=== PATIENT | male | born 1975 | race Hispanic/Latino ===

== ENCOUNTER 2017-08-16 06:53 | Observation (INO) | payer OTHER ==
[2017-08-16 06:57] VITALS: BMI 35.6
[2017-08-16 07:50] LABS: BASO # 0.01 K/mm3 (0.0-2.0); BASO % 0.1 % (0.0-3.0); EOS # 0.1 (0.0-0.7); EOS % 1.3 % (1.5-5.0); GRAN # 6.02 (1.4-6.5); HEMOGLOBIN 14.2 g/dL (14.0-18.0); LYMPH # 2.1 (1.2-3.4); MEAN CELL VOLUME 83.7 fl (80.0-105.0); MEAN CORPUSCULAR HEMOGLOBIN 28.3 pg (25.0-35.0); MEAN CORPUSCULAR HGB CONC 33.8 g/dl (31.0-37.0); MEAN PLATELET VOLUME 9.4 fl (7.0-11.0); MONO # 0.4 (0.1-0.6); MONO % 4.6 % (1.0-6.0); RBC 5.02 10^6/uL (3.5-6.1); RED CELL DISTRIBUTION WIDTH 13.4 % (11.5-14.5); WHITE BLOOD COUNT 8.6 10^3/ul (4.5-11.0)
--- NOTE | 2017-08-16 07:58 | ED PDOC ---
Arrival/HPI - General Historian: Patient - History of Present Illness Symptom Onset: Sudden Symptom Course: Unchanged Activities at Onset: Rest Context: Exertion <Jamaal Taylor - Last Filed: 08/16/17 10:13> - History of Present Illness Time/Duration: 24 hours Quality: Tightness, Cramping Severity Level: Severe <Can Melvin - Last Filed: 08/16/17 13:19> - General Chief Complaint: High Blood Pressure Time Seen by Provider: 08/16/17 07:11 - History of Present Illness Narrative History of Present Illness (Text): 08/16/17 07:54 Patient is a 41M with a PMH of HTN and GERD comes to the ED complaining of SOB and chest pain radiating down the left arm since last night. He states that he felt chest tightness and difficultly catching his breath last night, went to sleep, continue to feel this way, went to work and when his symptoms did not resolve he came to the ED. He denies any diaphoresis, syncope, fever, chills, nausea, vomiting diarrhea. This has never happened before. States he checked his blood pressure at home and systolic was ~170. Of note the patient has a FH of father with [place] at 50 and grandmother with [place] in 40s. States he saw he Dr. Elias 3 years ago for nuclear medicine scan that was normal at that time. (Jamaal Taylor) Past Medical History - Cardiac Hx Hypertension: Yes - Pulmonary Hx Respiratory Disorders: No - Neurological Hx Neurological Disorder: No - HEENT Hx HEENT Disorder: No - Renal Hx Renal Disorder: No - Endocrine/Metabolic Hx Endocrine Disorders: No - Hematological/Oncological Hx Blood Disorders: No - Integumentary Hx Dermatological Disorder: No - Musculoskeletal/Rheumatological Hx Musculoskeletal Disorders: No - Gastrointestinal Hx Gastroesophageal Reflux: Yes - Genitourinary/Gynecological Hx Genitourinary Disorders: No - Psychiatric Hx Psychophysiologic Disorder: No Hx Substance Use: No - Anesthesia Hx Anesthesia: No <Jamaal Taylor - Last Filed: 08/16/17 10:13> - Provider Review Nursing Documentation Reviewed: Yes - Travel History Have you recently traveled outside [place] w/in the past 3 mons?: No - Past History Past History: No Previous - Infectious Disease Hx of Infectious Diseases: None <Can Melvin - Last Filed: 08/16/17 13:19> Family/Social History Family/Social History: Unknown Family HX Smoking Status: Never Smoked Hx Alcohol Use: No Hx Substance Use: No <Jamaal Taylor - Last Filed: 08/16/17 10:13> - Physician Review Nursing Documentation Reviewed: Yes Hx Substance Use Treatment: No <Can Melvin - Last Filed: 08/16/17 13:19> Allergies/Home Meds <Jamaal Taylor - Last Filed: 08/16/17 10:13> <Can Melvin - Last Filed: 08/16/17 13:19> Allergies/Adverse Reactions: Allergies No Known Allergies Allergy (Verified 08/16/17 06:57) Home Medications: Home Meds Medication Instructions Recorded Confirmed Esomeprazole Magnesium [Nexium] 40 mg PO DAILY 03/15/13 08/16/17 Lisinopril [Zestril] 10 mg PO DAILY 08/16/17 08/16/17 Review of Systems - Review of Systems Constitutional: Normal Eyes: Normal ENT: Normal Respiratory: SOB Cardiovascular: Chest Pain. absent: Syncope Gastrointestinal: absent: Diarrhea, Nausea, Vomiting Genitourinary Male: Normal Musculoskeletal: Normal Skin: Normal Neurological: Normal Endocrine: Normal Hemo/Lymphatic: Normal Psychiatric: Normal <Jamaal Taylor - Last Filed: 08/16/17 10:13> Physical Exam Temperature: Afebrile Blood Pressure: Hypertensive Pulse: Tachycardic Respiratory Rate: Normal Appearance: Positive for: Well-Appearing, Non-Toxic, Comfortable Pain Distress: None Mental Status: Positive for: Alert and Oriented X 3 - Systems Exam Head: Present: Atraumatic, Normocephalic Pupils: Present: PERRL Extroacular Muscles: Present: EOMI Conjunctiva: Present: Normal Mouth: Present: Moist Mucous Membranes Respiratory/Chest: Present: Clear to Auscultation, Good Air Exchange. No: Respiratory Distress, Accessory Muscle Use Cardiovascular: Present: Normal S1, S2, Tachycardic. No: Murmurs Abdomen: Present: Normal Bowel Sounds. No: Tenderness, Distention, Peritoneal Signs Upper Extremity: Present: Normal Inspection. No: Cyanosis, Edema Lower Extremity: Present: Normal Inspection. No: Edema Neurological: Present: GCS=15, CN II-XII Intact Skin: Present: Warm, Dry, Normal Color. No: Rashes Psychiatric: Present: Alert, Oriented x 3, Normal Insight, Normal Concentration <ClaudiaJamaal - Last Filed: 08/16/17 10:13> Vital Signs Temp Pulse Resp BP Pulse Ox 08/16/17 12:40 92 H 18 149/88 98 08/16/17 11:28 99.2 F 92 H 16 142/86 98 08/16/17 10:15 92 H 18 144/92 H 96 08/16/17 09:11 108 H 140/76 08/16/17 08:16 102 H 18 138/83 96 08/16/17 07:10 98.4 F 08/16/17 07:05 97.9 F 107 H 14 166/110 H 97 Medical Decision Making <ClaudiaJamaal - Last Filed: 08/16/17 10:13> Re-evaluation Time: 11:00 Reassessment Condition: Improved - Critical Care Critical Care Minutes: 30 minutes Critical Care Time: Excluding Proc Time - Lab Interpretations I have reviewed the lab results: Yes Interpretation: All labs normal - RAD Interpretation [employer] Science Teacher: Radiologist - EKG Interpretation Interpreted by ED Physician: Yes Type: 12 lead EKG Comparison: No previous EKG avail. <Can Melvin - Last Filed: 08/16/17 13:19> ED Course and Treatment: 08/16/17 08:01 41M with chest pain and SOB - cxr, ekg, cta - cbc, cmp, mag, cardiac iso, bnp - Nitro SL and ASA 325 - initial impression on CXR does not show any infiltrate or effusion, no widening of the mediastinum 08/16/17 09:55 - CXR negative - pain improving - labs unremarkable - EKG no st changes or arrythmogenic intervals - Troponin negative - BnP negative - pending CTA official read 08/16/17 10:14 - CTA negative - call put out to admitting doctor (Jamaal Taylor) 08/16/17 08:23 Patient seen with the resident. I performed a physical exam of the patient and discussed their management with resident. I have reviewed the resident note and agree with the assessment and plan of care. Vital signs reviewed: elevated BP/elevated HR alert/awake, GCS = 15, oriented x 3, resting in bed, uncomfortable, cooperative , interactive NC/AT PERRLA, EOMI, sclera anicteric, no nystagmus, no photophobia NECK: intact ROM, no midline tenderness, no nuchal rigidity, no meningeal signs CTA b/l, no w/r/r; no reproducible chest tenderness noted +S1, +S2, + mild tachycardia, no m/r/r +BS, soft/nd/nt, well nourished patient ext: intact ROM, strength 5/5 grossly intact in all limbs, neurovasc intact b/l SKIN: cap refill < 1 sec, no ulcerations, no petechiae, no rashes NEURO: CNII-XII WNL, no facial asymmetries, no slurr speech, oriented x 3 NIH stroke scale ~ 0 Impression: chest pain and shortness of breath I have considered all the differential diagnosis regarding the patient's chief medical complaints/clinical findings, including but are not limited to: chest pain and shortness of breath; r/o ACS A/P: chest pain and shortness of breath -- Chest X-ray -- EKG -- CTA -- Pain Control -- Supportive Care -- Observe PROCEDURE: CT Chest with contrast (Pulmonary Angiogram) Dictator : Osmani Ghosh MD Report Date : 08/16/2017 10:04:04 IMPRESSION: Unremarkable CT pulmonary angiogram. No pulmonary embolus. pt is currently chest pain free pt states he felt improved pt's vital signs are improving as well 08/16/17 10:18: Case discussed with Dr. Elias in detail. Will come evaluate patient. 08/16/17 10:21 Case discussed in detail with Dr. Baird; made aware, agrees with admission 08/16/17 1100 - pt is made aware of his medical results agrees with admission/observation (Can Melvin) - Critical Care Narrative Critical Care (Text): 08/16/17 13:12 critical care time: 30min, excluding procedure time, excluding time teaching residents/students/mid-level providers; including initial eval/diagnosis, diagnostic interpretation, re-eval, consultations, final disposition (Can Melvin) - Lab Interpretations Lab Results: 08/16/17 07:30 08/16/17 07:30 Lab Results 08/16/17 09:20: Urine Opiates Screen Negative, Urine Methadone Screen Negative, Ur Barbiturates Screen Negative, Ur Phencyclidine Scrn Negative, Ur Amphetamines Screen Negative, U Benzodiazepines Scrn Negative, U Oth Cocaine Metabols Negative, U Cannabinoids Screen Negative 08/16/17 07:30: Sodium 141, Potassium 4.3, Chloride 101, Carbon Dioxide 29, Anion Gap 14, BUN 13, Creatinine 0.7 L, Est GFR ( Amer) > 60, Est GFR ( Non-Af Amer) > 60, Random Glucose 116 H, Calcium 9.9, Magnesium 1.7, Total Bilirubin 0.2, AST 24, ALT 52, Alkaline Phosphatase 51, Lactate Dehydrogenase 494, Total Creatine Kinase 185, Troponin I < 0.01, NT-Pro-B Natriuret Pep < 11.1 , Total Protein 7.3, Albumin 4.3, Globulin 2.9, Albumin/Globulin Ratio 1.5 08/16/17 07:30: WBC 8.6, RBC 5.02, Hgb 14.2, Hct 42.0, MCV 83.7, MCH 28.3, MCHC 33.8, RDW 13.4, Plt Count 214, MPV 9.4, Gran % 70.0 H, Lymph % (Auto) 24.0, [place] % (Auto) 4.6, Eos % (Auto) 1.3 L, Baso % (Auto) 0.1, Gran # 6.02, Lymph # ( Auto) 2.1, [place] # (Auto) 0.4, Eos # (Auto) 0.1, Baso # (Auto) 0.01 - RAD Interpretation Narrative RAD Interpretations (Text): 08/16/17 13:13 PROCEDURE: CT Chest with contrast (Pulmonary Angiogram) HISTORY: chest pain, acute SOB, unilateral LE edema, tachy COMPARISON: None available. TECHNIQUE: Axial computed tomography images were obtained of the chest in the pulmonary arterial phase of enhancement. Coronal and sagittal reformatted images were created and reviewed. Intravenous contrast dose: 100 cc of Omni 350 Radiation dose: Total exam DLP = 435 mGy-cm. This CT exam was performed using one or more of the following dose reduction techniques: Automated exposure control, adjustment of the mA and/or kV according to patient size, and/or use of iterative reconstruction technique. FINDINGS: PULMONARY ARTERIES: Unremarkable. No pulmonary embolism. AORTA: No acute findings. No thoracic aortic aneurysm. LUNGS: Unremarkable. No nodule, mass or pulmonary consolidation. PLEURAL SPACES: Unremarkable. No effusion or pneuomothorax. HEART: Unremarkable. No cardiomegaly. No significant pericardial effusion. LYMPH NODES: No lymphadenopathy. BONES, CHEST WALL: Unremarkable. No fracture or destructive lesion OTHER FINDINGS: Unremarkable. IMPRESSION: Unremarkable CT pulmonary angiogram. No pulmonary embolus. 08/16/17 13:13 Portable chest History. Chest pain and shortness of breath Comments. The heart and mediastinum are normal in size per the lungs are clear. There is no evidence of CHF or pneumonia. Impression: No active disease (Can Melvin) Radiology Orders: 08/16/17 07:12 CHEST PORTABLE [RAD] Stat 08/16/17 07:50 ANGIO CHEST PE PROTOCOL [CT] Stat - EKG Interpretation EKG Interpretation (Text): 08/16/17 13:13 Sinus tach at 105 bpm, LAD, no ectopy, peaked T in leads V3-4, no st changes, ABNL EKG; no old ekg available (Can Melvin) - Medication Orders Current Medication Orders: Discontinued Medications Aspirin (Aspirin) 325 mg PO STAT STA Stop: 08/16/17 07:51 Last Admin: 08/16/17 08:05 Dose: 325 mg Metoprolol Tartrate (Lopressor) 5 mg IVP STAT STA Stop: 08/16/17 08:43 Last Admin: 08/16/17 09:11 Dose: 5 mg IVP Administration Document 08/16/17 09:11 Marcus (Rec: 08/16/17 09:11 [facility] [id number]) Charges for Administration # of IVP Administrations 1 MAR Pulse and Blood Pressure Document 08/16/17 09:11 HIRAM (Rec: 08/16/17 09:11 [facility] [id number]) Pulse Pulse Rate (60-90) 108 Blood Pressure Blood Pressure (100/60-150/90) 140/76 Nitroglycerin (Nitrostat Sl Tab) 0.4 mg SL STAT STA Stop: 08/16/17 07:40 Last Admin: 08/16/17 08:04 Dose: 0.4 mg - PA / [employer] / Resident Statement / has reviewed & agrees with the documentation as recorded. / has examined the patient and agrees with the treatment plan. <Jamaal Taylor - Last Filed: 08/16/17 10:13> - Scribe Statement The provider has reviewed the documentation as recorded by the Scribe <Can Melvin - Last Filed: 08/16/17 13:19> - Scribe Statement Valerie Odell Provider Scribe Attestation: All medical record entries made by the Scribe were at my direction and personally dictated by me. I have reviewed the chart and agree that the record accurately reflects my personal performance of the history, physical exam, medical decision making, and the department course for this patient. I have also personally directed, reviewed, and agree with the discharge instructions and disposition. (Can Melvin) Disposition/Present on Arrival - Present on Arrival Any Indicators Present on Arrival: Yes History of DVT/PE: No History of Uncontrolled Diabetes: No Urinary Catheter: No History of Decub. Ulcer: No History Surgical Site Infection Following: None - Disposition Have Diagnosis and Disposition been Completed?: Yes Disposition Time: 10:15 Patient Plan: Observation <Jamaal Taylor - Last Filed: 08/16/17 10:13> - Disposition Patient Plan: Admission <Can Melvin - Last Filed: 08/16/17 13:19> - Disposition Diagnosis: Chest pain, HTN (hypertension) Disposition: HOSPITALIZED Patient Problems: Current Active Problems Problem Status Onset Chest pain Acute Condition: STABLE
[2017-08-16 08:00] LABS: ALB/GLOB RATIO 1.5 (1.1-1.8); ALBUMIN 4.3 g/dL (3.0-4.8); ALT/SGPT 52 U/L (7-56); AST/SGOT 24 U/L (17-59); BLOOD UREA NITROGEN 13 mg/dL (7-21); CALCIUM 9.9 mg/dL (8.4-10.5); GFR AFRICAN-AMERICAN > 60; GFR NON-AFRICAN AMERICAN > 60
[2017-08-16 08:12] LABS: TROPONIN I < 0.01 ng/mL
[2017-08-16] MEDS ORDERED: Iohexol 350 MG/100 ML VIAL ONE (08:30)
[2017-08-16 08:31] LABS: B-TYPE NATRIURETIC PEPTIDE < 11.1 pg/mL (0-450)
[2017-08-16] MEDS ORDERED: Metoprolol 1 mg/ml Inj IVP STA (08:42)
--- NOTE | 2017-08-16 09:38 | RAD ---
Portable chest History. Chest pain and shortness of breath Comments. The heart and mediastinum are normal in size per the lungs are clear. There is no evidence of CHF or pneumonia. Impression: No active disease
[2017-08-16 09:49] LABS: BARBITURATES, UR NEGATIVE (NEGATIVE); BENZODIAZEPINES, UR NEGATIVE (NEGATIVE); OPIATES, UR NEGATIVE (NEGATIVE); PHENCYCLIDINE, UR NEGATIVE (NEGATIVE)
--- NOTE | 2017-08-16 10:05 | CT ---
PROCEDURE: CT Chest with contrast (Pulmonary Angiogram) HISTORY: chest pain, acute SOB, unilateral LE edema, tachy COMPARISON: None available. TECHNIQUE: Axial computed tomography images were obtained of the chest in the pulmonary arterial phase of enhancement. Coronal and sagittal reformatted images were created and reviewed. Intravenous contrast dose: 100 cc of Omni 350 Radiation dose: Total exam DLP = 435 mGy-cm. This CT exam was performed using one or more of the following dose reduction techniques: Automated exposure control, adjustment of the mA and/or kV according to patient size, and/or use of iterative reconstruction technique. FINDINGS: PULMONARY ARTERIES: Unremarkable. No pulmonary embolism. AORTA: No acute findings. No thoracic aortic aneurysm. LUNGS: Unremarkable. No nodule, mass or pulmonary consolidation. PLEURAL SPACES: Unremarkable. No effusion or pneuomothorax. HEART: Unremarkable. No cardiomegaly. No significant pericardial effusion. LYMPH NODES: No lymphadenopathy. BONES, CHEST WALL: Unremarkable. No fracture or destructive lesion OTHER FINDINGS: Unremarkable. IMPRESSION: Unremarkable CT pulmonary angiogram. No pulmonary embolus.
[2017-08-16] MEDS ORDERED: Non Formulary Medication (Esomeprazole Magnesium [Nexium] 40 MG) PO SCH (15:15)
[2017-08-16] MEDS ORDERED: Pantoprazole 40 mg EC Tab PO ONE (15:15)
--- NOTE | 2017-08-16 17:05 | CP.PCM.PN ---
Subjective - Date & Time of Evaluation Date of Evaluation: 08/16/17 Time of Evaluation: 17:01 - Subjective Subjective: House Doctor evaluation for chest pain Patient is a 41yo male with PMH of HTN admitted today for chest pain. He reports it is located in the L upper area in his chest and radiates down to his shoulder. He had this pain on admission which was relieved by sublingual nitro. Patient reports this pain is back and has numbness/tingling down the arm. He denies nausea/vomiting/diarrhea, fever/chills, shortness of breath, vision changes or headache. Vitals were reviewed and patient was noted to have SBP in 130s. Otherwise vitals were stable. Repeat EKG was done which showed NSR. First troponin was negative. Troponin was repeated and was <0.01 x 2. Will repeat another troponin and give one dose of sublingual nitro. PMD, Dr. Baird was notified. Susanne Medrano PGY2 Objective - Vital Signs/Intake and Output Vital Signs (last 24 hours): Temp Pulse Resp BP Pulse Ox 98.1 F 64 20 143/99 H 98 08/16/17 16:15 08/16/17 16:15 08/16/17 16:15 08/16/17 16:15 08/16/17 12:40 - Medications Medications: Current Medications Lisinopril (Zestril) 10 mg PO DAILY IVORY Pantoprazole Sodium (Protonix Ec Tab) 40 mg PO ACB IVORY - Constitutional Appears: No Acute Distress - Head Exam Head Exam: ATRAUMATIC, NORMAL INSPECTION, NORMOCEPHALIC - Eye Exam Eye Exam: Normal appearance, PERRL Pupil Exam: NORMAL ACCOMODATION, PERRL - ENT Exam ENT Exam: Mucous Membranes Moist - Neck Exam Neck Exam: Normal Inspection - Respiratory Exam Respiratory Exam: Clear to Ausculation Bilateral, NORMAL BREATHING PATTERN. absent: Rales, Rhonchi, Wheezes, Respiratory Distress - Cardiovascular Exam Cardiovascular Exam: REGULAR RHYTHM, +S1, +S2. absent: Gallop, Murmur - GI/Abdominal Exam GI & Abdominal Exam: Soft, Normal Bowel Sounds. absent: Tenderness, Diminished Bowel Sounds, Mass, Rebound - Extremities Exam Extremities Exam: absent: Calf Tenderness, Pedal Edema, Tenderness - Neurological Exam Neurological Exam: Alert, Awake, CN II-XII Intact, Oriented x3 - Psychiatric Exam Psychiatric exam: Normal Affect, Normal Mood - Skin Skin Exam: Intact, Warm
--- NOTE | 2017-08-16 19:15 | CON ---
DATE: 08/16/2017 CARDIOLOGY CONSULTATION HISTORY OF PRESENT ILLNESS: The patient is a 41-year-old male who presents with chest pain. His symptoms are described predominantly left shoulder. PAST MEDICAL HISTORY: Includes a stress test that was done 3 years ago, which was unremarkable. He suffers from hypertension. He is mildly overweight. His life is sedentary. No diabetes mellitus. SOCIAL HISTORY The patient stopped smoking. REVIEW OF SYSTEMS: A 14-point review of systems is reviewed in detail. Other than his atypical chest discomfort, there are no other cardiac symptoms. PHYSICAL EXAMINATION: VITAL SIGNS: Blood pressure is 142/86, heart rate in the 90s. NECK: Negative JVD. LUNGS: Without rales. HEART: S1, S2. EXTREMITIES: Without edema. LABORATORY DATA AND IMAGING: EKG is unremarkable. Hemoglobin is 14.2. Chemistries: BUN and creatinine unremarkable. The first troponin is negative. The glucose is 116. IMPRESSION: 1. Chest pain. 2. No evidence for acute coronary syndrome. 3. Hypertension. 4. Sedentary lifestyle. 5. Overweight. 6. Borderline diabetes mellitus. Given these findings, the patient is being admitted to telemetry. We will obtain serial troponins. If negative, the patient will need to change his lifestyle as well as undergo stress test, which can be done electively. Kris Elias MD : 08/16/2017 12:25:09
--- NOTE | 2017-08-16 19:17 | CARD ---
APPROVED REPORT EKG Measurement Heart [id number] MO 150P8 [id number] <Conclusion> Normal sinus rhythm Normal ECG
--- NOTE | 2017-08-16 19:32 | CARD ---
APPROVED REPORT EKG Measurement Heart [id number] 144P3 [id number] <Conclusion> Sinus tachycardia Otherwise normal ECG
[2017-08-17 06:51] LABS: HEMOGLOBIN 14.1 g/dL (14.0-18.0); MEAN CELL VOLUME 83.4 fl (80.0-105.0); MEAN CORPUSCULAR HEMOGLOBIN 27.6 pg (25.0-35.0); MEAN CORPUSCULAR HGB CONC 33.1 g/dl (31.0-37.0); MEAN PLATELET VOLUME 9.2 fl (7.0-11.0); RBC 5.11 10^6/uL (3.5-6.1); RED CELL DISTRIBUTION WIDTH 13.8 % (11.5-14.5)
[2017-08-17 07:13] LABS: BLOOD UREA NITROGEN 13 mg/dL (7-21); CALCIUM 9.6 mg/dL (8.4-10.5); GFR AFRICAN-AMERICAN > 60; GFR NON-AFRICAN AMERICAN > 60; HDL CHOLESTEROL 36 mg/dL (29-60)
[2017-08-17 07:24] LABS: LDL CHOLESTEROL 107 mg/dL (0-129)
[2017-08-17 07:26] LABS: TROPONIN I < 0.01 ng/mL
[2017-08-17] MEDS ORDERED: Pantoprazole 40 mg EC Tab PO SCH (07:30)
[2017-08-17 09:03] VITALS: RESP 17; TEMP 98.3; O2SAT 97
--- NOTE | 2017-08-17 09:47 | HP ---
DATE OF EXAM: The patient is a 41-year-old male. CHIEF COMPLAINT: Chest pain. HISTORY OF PRESENT ILLNESS: Mr. Florencio Reed is a 41-year-old male with past medical history of hypertension and GERD, comes to the emergency room complaining of shortness of breath and chest pain, radiating down to the left arm since last night. He states that he felt chest tightness and difficulty catching his breath last night, went to sleep, continued to feel like this way, went to work and when his symptoms did not resolve, he came to the emergency room. He denies any diaphoresis, syncope, fever, chills, nausea, vomiting, diarrhea. This has never happened before, states that he checked his blood pressure at home, systolic was 170. Patient has family history of coronary artery disease, father has [place] at the age of 50 and grandmother has [place] at the age of 40s. States that he was seen by Dr. Kris Elias three years ago for nuclear medicine scan that was normal at that time. PAST MEDICAL HISTORY: Hypertension, obesity, gastroesophageal reflux disease. FAMILY HISTORY: Father and grandmother has coronary artery disease. SOCIAL HISTORY: Smoking, he never smoked. No drugs. No ethanol. ALLERGIES: NO KNOWN DRUG ALLERGY. HOME MEDICATIONS: Nexium, Zestril. REVIEW OF SYSTEMS: Patient was seen and examined on the bedside in his room, looking comfortable. At that moment, no shortness of breath, no syncope. No diarrhea, nausea or vomiting. No fever. No chills. No dysuria. Complaining about chest pain. PHYSICAL EXAMINATION: VITAL SIGNS: Temperature 99.2, pulse 92, respiratory rate 16, blood pressure 120/80 , pulse oximetry 98%. HEENT: Head normocephalic, atraumatic. Eyes: PERRLA. Extraocular movements intact. Conjunctivae clear. Nose patent. Mucous membranes moist. NECK: Supple. No carotid bruits. No JVD or thyromegaly. CHEST: Bilaterally symmetrical. HEART: S1, S2 positive. LUNGS: Clear to auscultation. ABDOMEN: Soft. Bowel sounds present. No organomegaly. EXTREMITIES: No edema. No cyanosis. NEUROLOGICAL: Patient is awake, alert. Moving all 4 extremities. No focal deficits. LABORATORY DATA: White blood cell is 8.6, hemoglobin 14.2, hematocrit 42, platelets 214. Sodium 141, potassium 4.3, BUN 13, creatinine 0.7, glucose 116. ASSESSMENT AND PLAN: Mr. Florencio Reed is a 41-year-old male came with chest pain. CT scan of the chest was done with unremarkable CT. Pulmonary angiogram, no pulmonary embolism noticed. Portable chest x-ray shows no active disease. Gastroesophageal reflux disease, dyspepsia, hypertension. Cardiology consult called with Dr. Kris Elias. Actually Dr. Kris Elias is the patient's accounting director, he saw the patient. Borderline diabetes mellitus. No evidence of acute coronary syndrome as by Dr. Elias. Sedentary lifestyle, overweight. Given these findings, the patient being admitted to the telemetry as by Dr. Kris Elias. We will obtain serial troponins, if negative, the patient will need to change his lifestyle as well as undergoing stress test, which can be done electively. Repeat lab. Gastrointestinal and deep venous thrombosis prophylaxis. We will follow up. Vira Baird MD [id number]
[2017-08-17 10:51] VITALS: BP 132/91; PULSE 94
--- NOTE | 2017-08-17 11:44 | CP.PCM.CON ---
<Aminta Madera - Last Filed: 08/17/17 11:30> History of Present Illness - History of Present Illness History of Present Illness: Seen and examined at the bedside earlier this morning, chart reviewed. Request for GI consult is for dyspepsia. HPI: This is a 41-year-old obese male who came in with complaints of shortness of breath and chest pain that was radiating down into his left arm that started Wednesday night, patient complained of chest tightness and difficulty catching his breath. He went to work yesterday with the symptoms still not resolved and came to the emergency room for further evaluation. He reported that his blood pressure was elevated at home. He does complain of heartburn but no increase in symptoms prior to complaint of chest pain. He takes Nexium 40 mg daily and he last saw his janitor 2 months ago, in [place], cannot recall his Doctor's name. He does endorse eating heavy at night at times and they wake up with heartburn in the morning. No reports of nausea, vomiting, change in bowel habits, or overt GI bleed. His last bowel movement was this morning and it was solid, no blood. Denies any weight loss. His last endoscopy and colonoscopy for January 2017 he does not recall any acute findings. On admission he had a CT scan of the chest/pharyngeal protocol, this was negative for PE, unremarkable study no lymph nodes. Past medical history: Obesity, GERD, hypertension Past surgical history denies any cardiac procedures or abdominal surgery, had carpal tunnel surgery Family history: Denies any known history of cancer , father [place] Allergies: No known drug allergies Social history: Former smoker, denies EtOH or illicit drugs Medications: Reviewed as per MAR ROS: Systems reviewed with positive finding see HPI Past Patient History - Infectious Disease Hx of Infectious Diseases: None - Past Social History Smoking Status: Never Smoked - CARDIAC Hx Hypertension: Yes - PULMONARY Hx Respiratory Disorders: No - NEUROLOGICAL Hx Neurological Disorder: No - HEENT Hx HEENT Problems: No - RENAL Hx Chronic Kidney Disease: No - ENDOCRINE/METABOLIC Hx Endocrine Disorders: No - HEMATOLOGICAL/ONCOLOGICAL Hx Blood Disorders: No - INTEGUMENTARY Hx Dermatological Problems: No - MUSCULOSKELETAL/RHEUMATOLOGICAL Hx Falls: No - GASTROINTESTINAL Hx Gastroesophageal Reflux: Yes - GENITOURINARY/GYNECOLOGICAL Hx Genitourinary Disorders: No - PSYCHIATRIC Hx Psychophysiologic Disorder: No - SURGICAL HISTORY Hx Surgeries: No - ANESTHESIA Hx Anesthesia: No Meds Home Medications: Home Medication List Medication Instructions Recorded Confirmed Type Aspirin 81 mg PO DAILY #30 tab.chew 08/17/17 Rx Lisinopril [Zestril] 20 mg PO DAILY #30 tab 08/17/17 Rx Allergies/Adverse Reactions: Allergies Allergy/AdvReac Type Severity Reaction Status Date / Time No Known Allergies Allergy Verified 08/16/17 06:57 - Medications Medications: Current Medications Aspirin (Aspirin) 325 mg PO DAILY [facility] Last Admin: 08/17/17 09:22 Dose: 325 mg Lisinopril (Zestril) 20 mg PO DAILY [facility] Last Admin: 08/17/17 10:50 Dose: 20 mg Pantoprazole Sodium (Protonix Ec Tab) 40 mg PO ACB [facility] Last Admin: 08/17/17 08:41 Dose: Not Given Physical Exam - Constitutional Appears: No Acute Distress - Head Exam Head Exam: NORMOCEPHALIC - Eye Exam Eye Exam: Normal appearance. absent: Scleral icterus - ENT Exam ENT Exam: Mucous Membranes Moist - Neck Exam Neck exam: Positive for: Normal Inspection - Respiratory Exam Respiratory Exam: Clear to Auscultation Bilateral, NORMAL BREATHING PATTERN. absent: Respiratory Distress - Cardiovascular Exam Cardiovascular Exam: +S1, +S2 - GI/Abdominal Exam GI & Abdominal Exam: Normal Bowel Sounds, Soft. absent: Guarding, Organomegaly , Rebound, Tenderness - Extremities Exam Extremities exam: Positive for: pedal pulses present. Negative for: calf tenderness, pedal edema - Neurological Exam Neurological exam: Alert, Oriented x3 - Skin Skin Exam: Dry, Warm Results - Vital Signs Recent Vital Signs: Last Vital Signs Temp 98.3 F 08/17/17 09:03 Pulse 94 H 08/17/17 10:50 Resp 17 08/17/17 09:03 BP 132/91 H 08/17/17 10:50 Pulse Ox 97 08/17/17 09:03 - Labs Result Diagrams: 08/17/17 06:15 08/17/17 06:15 Labs: Laboratory Results - last 24 hr 08/16/17 08/16/17 08/17/17 16:35 22:43 06:15 WBC RBC Hgb Hct MCV MCH MCHC RDW Plt Count MPV Sodium 138 Potassium 4.2 Chloride 102 Carbon Dioxide 27 Anion Gap 14 BUN 13 Creatinine 0.8 Est GFR ( Amer) > 60 Est GFR (Non-Af Amer) > 60 Random Glucose 118 H Calcium 9.6 Lactate Dehydrogenase 405 Total Creatine Kinase 149 Troponin I < 0.01 < 0.01 < 0.01 Triglycerides 178 H Cholesterol 171 LDL Cholesterol Direct 107 HDL Cholesterol 36 TSH 3rd Generation 08/17/17 08/17/17 06:15 06:15 WBC 8.0 RBC 5.11 Hgb 14.1 Hct 42.6 MCV 83.4 MCH 27.6 MCHC 33.1 RDW 13.8 Plt Count 218 MPV 9.2 Sodium Potassium Chloride Carbon Dioxide Anion Gap BUN Creatinine Est GFR ( Amer) Est GFR (Non-Af Amer) Random Glucose Calcium Lactate Dehydrogenase Total Creatine Kinase Troponin I Triglycerides Cholesterol LDL Cholesterol Direct HDL Cholesterol TSH 3rd Generation 1.65 Assessment & Plan - Assessment and Plan (Free Text) Assessment: Assessment: Atypical chest pain GERD Obesity Hypertension Plan: Continue PPI on Aspirin as per Cardiology Diet as tolerated Discussed w/ patient lifestyle changes, avoid eating heavily in the evening, weight loss, limit caffeine intake etc. Patient endorses that he will follow up with his personal GI doctor in [place] he cannot recall his doctor's name. Thank you for this consult and for us to participate in your patient's care. Further recommendations based on clinical course. Seen and discussed with Dr. Gutierrez. <Ashlie Gutierrez V - Last Filed: 08/17/17 22:17> Results - Vital Signs Recent Vital Signs: Last Vital Signs Temp 98.3 F 08/17/17 09:03 Pulse 94 H 08/17/17 10:50 Resp 17 08/17/17 09:03 BP 132/91 H 08/17/17 10:50 Pulse Ox 97 08/17/17 09:03 - Labs Result Diagrams: 08/17/17 06:15 08/17/17 06:15 Labs: Laboratory Results - last 24 hr 08/16/17 08/17/17 08/17/17 22:43 06:15 06:15 WBC RBC Hgb Hct MCV MCH MCHC RDW Plt Count MPV Sodium 138 Potassium 4.2 Chloride 102 Carbon Dioxide 27 Anion Gap 14 BUN 13 Creatinine 0.8 Est GFR ( Amer) > 60 Est GFR (Non-Af Amer) > 60 Random Glucose 118 H Hemoglobin A1c 5.9 Calcium 9.6 Lactate Dehydrogenase 405 Total Creatine Kinase 149 Troponin I < 0.01 < 0.01 Triglycerides 178 H Cholesterol 171 LDL Cholesterol Direct 107 HDL Cholesterol 36 TSH 3rd Generation 08/17/17 08/17/17 06:15 06:15 WBC 8.0 RBC 5.11 Hgb 14.1 Hct 42.6 MCV 83.4 MCH 27.6 MCHC 33.1 RDW 13.8 Plt Count 218 MPV 9.2 Sodium Potassium Chloride Carbon Dioxide Anion Gap BUN Creatinine Est GFR ( Amer) Est GFR (Non-Af Amer) Random Glucose Hemoglobin A1c Calcium Lactate Dehydrogenase Total Creatine Kinase Troponin I Triglycerides Cholesterol LDL Cholesterol Direct HDL Cholesterol TSH 3rd Generation 1.65
--- NOTE | 2017-08-17 14:59 | PN ---
DATE: 08/17/2017 CARDIOLOGY FOLLOWUP SUBJECTIVE: The patient is ambulating without symptoms. PHYSICAL EXAMINATION: VITAL SIGNS: Blood pressure is 132/91, heart rate is in the 90s. NECK: Negative JVD. LUNGS: Without rales. HEART: Reveals S1, S2. EXTREMITIES: Without edema. LABORATORY DATA: Hemoglobin is 14.1. Chemistries, troponins are negative x4. The glucose is 118. IMPRESSION: 1. Atypical chest pain. 2. No evidence for acute coronary syndrome. 3. Obesity. 4. Borderline diabetes mellitus. 5. Hypertension. RECOMMENDATIONS: Given these findings, from a cardiac perspective, the patient can be discharged. I have arranged for an outpatient stress test for the patient. I have discussed with him about his need for cardiac risk reduction program, which needs to include weight loss as well as exercise. Kris Elias MD
== END 2017-08-17 18:25 | disposition home or self-care (01) ==
LOC: ED 06:53 → ERH 10:24 → 3RSO 13:18
PROVIDERS: ADMIT Internal Medicine; ATTEND Internal Medicine
DX: R07.89 Other chest pain (principal); K21.9 Gastro-esophageal reflux disease without esophagitis; I10 Essential (primary) hypertension; E66.9 Obesity, unspecified; R73.03 Prediabetes; Z79.82 Long term (current) use of aspirin; Z79.899 Other long term (current) drug therapy; Z82.49 Family history of ischemic heart disease and other diseases of the circulatory system; Z87.891 Personal history of nicotine dependence; R40.2412 Glasgow coma scale score 13-15, at arrival to emergency department; Z68.35 Body mass index [BMI] 35.0-35.9, adult
CPT/HCPCS: 36415; 71045; 71275; 80048; 80053; 80061; 80324; 80345; 80346; 80349; 80353; 80358; 80361; 82550; 83036; 83615; 83735; 83880; 83992; 84443; 84484; 85025; 85027; 93005; 96374; 99285; G0378; Q9967